=== PATIENT | male | born 1985 | race African-American/Black ===

== ENCOUNTER 2022-12-11 14:17 | Emergency (ER) | payer MEDICAID, OTHER ==
[~2022-12-11] VITALS: Ht 175.3 cm; Wt 84.0 kg
[2022-12-11 14:47] LABS: BASOPHILS % 0.9 % (0.0-2.0); EOSINOPHILS % 6.9 % (0.0-5.0); HEMATOCRIT. 43.5 % (42.0-52.0); HEMOGLOBIN. 15.2 g/dL (14.0-18.0); LYMPHOCYTES % 29.8 % (20.0-50.0); MEAN CORPUSCULAR HEMOGLOBIN 36.2 pg (28.0-32.0); MEAN CORPUSCULAR VOLUME 103.6 fL (80.0-94.0); MEAN PLATELET VOLUME 8.3 fl (7.4-10.4); MONOCYTES % 11.2 % (2.0-8.0); NEUTROPHILS % 51.2 % (40.0-76.0); PLATELET 171 x1000/uL (130-400); RED CELL DISTRIBUTION WIDTH 14.4 % (11.6-14.6)
[2022-12-11 14:54] LABS: CHLORIDE 107 mEq/L (98-107)
[2022-12-11 15:16] VITALS: BP 156/107
[2022-12-11] MEDS ORDERED: HYDR25TA MT (16:30)
[2022-12-11] MEDS ORDERED: CYCL5TAB MT (16:30)
[2022-12-11] MEDS ORDERED: IBUP-2030 MT (16:30)
[2022-12-11 16:32] LABS: *AMPHETAMINES SCREEN URINE NEGATIVE (NEGATIVE); *BARBITURATES SCREEN URINE NEGATIVE (NEGATIVE); *BENZODIAZEPINES SCREEN URINE NEGATIVE (NEGATIVE); *COCAINE SCREEN URINE PRESUMTIVE POSITIVE (NEGATIVE); CANNABINOID URINE SCREEN PRESUMTIVE POSITIVE (NEGATIVE); METHADONE URINE SCREEN NEGATIVE (NEGATIVE); OPIATES URINE SCREEN NEGATIVE (NEGATIVE); PHENCYCLIDINE URINE SCREEN PRESUMTIVE POSITIVE (NEGATIVE)
== END 2022-12-12 12:02 | disposition home or self-care (01) ==
LOC: ER 14:17
DX: R07.89 Other chest pain (principal); M54.2 Cervicalgia
CPT/HCPCS: 36415; 71045; 80053; 80305; 80320; 84484; 85025; 93005; 99285; G0480